=== PATIENT | male | born 1935 | race Caucasian/White ===

== ENCOUNTER 2021-11-29 10:52 | Inpatient (IN) | payer MEDICARE, OTHER ==
[~2021-11-29] VITALS: Ht 177.8 cm; Wt 99.8 kg
[2021-11-29 11:27] LABS: HEMATOCRIT 33.6 % (36.7-47.1); MEAN CORPUSCULAR HEMOGLOBIN 26.6 uug (23.8-33.4); MEAN CORPUSCULAR VOLUME 85.6 fL (73.0-96.2); PLATELET COUNT (AUTO) 161 K/uL (152-348)
[2021-11-29 11:32] LABS: CARBON DIOXIDE 29 mmol/L (21-32); CHLORIDE 106 mmol/L (98-107); CREATININE 1.3 mg/dL (0.6-1.3); GLUCOSE 109 mg/dL (74-106); POTASSIUM 3.9 mmol/L (3.5-5.1); UREA NITROGEN, BLOOD 25 mg/dL (7-18)
[2021-11-29 11:41] LABS: ALANINE AMINOTRANSFERASE 15 U/L (16-63); ALKALINE PHOSPHATASE 188 U/L (50-136); ASPARTATE AMINOTRANSFERASE 21 U/L (15-37); BILIRUBIN,DIRECT 0.9 mg/dL (0.0-0.2); BILIRUBIN,TOTAL 1.7 mg/dL (0.2-1.0); TOTAL PROTEIN, SERUM 7.7 g/dL (6.4-8.2)
[2021-11-29 11:49] LABS: THYROID STIMULATING HORMONE 2.513 mIU/mL (0.358-3.740)
[2021-11-29] MEDS ORDERED: DIGO250T PO (12:04)
[2021-11-29] MEDS ORDERED: CHOL10005 PO (12:04)
[2021-11-29] MEDS ORDERED: MELA3TAB41 PO (12:04)
[2021-11-29] MEDS ORDERED: TAMS-3 PO (12:04)
[2021-11-29] MEDS ORDERED: FLUT1BLS4 IH (12:04)
[2021-11-29] MEDS ORDERED: FURO-152 PO (12:04)
[2021-11-29] MEDS ORDERED: UBID100T7 PO (12:04)
[2021-11-29] MEDS ORDERED: [UNRECOGNIZED DRUG - REMARK] (12:04)
[2021-11-29] MEDS ORDERED: POLY17PO4 PO (12:04)
[2021-11-29] MEDS ORDERED: ACET-2154 PO (12:04)
[2021-11-29] MEDS ORDERED: EFFEXOR (12:04)
[2021-11-29] MEDS ORDERED: MIDO10TA PO (12:04)
[2021-11-29] MEDS ORDERED: PANT40TA49 PO (12:04)
[2021-11-29] MEDS ORDERED: LAMO100T2 PO (12:04)
[2021-11-29] MEDS ORDERED: MONT10TA22 PO (12:04)
--- NOTE | 2021-11-29 12:42 | NUR ---
PT IS IN ROOM 31B. DR BOLIVAR EVALUATED THE PT.
[2021-11-29 13:28] LABS: *BILIRUBIN,URIN NEGATIVE (NEGATIVE); *BLOOD, URINE NEGATIVE (NEGATIVE); *CLARITY,URINE CLEAR (CLEAR); *COLOR,URINE YELLOW (YELLOW); *KETONES,URINE NEGATIVE (NEGATIVE); LEUKOCYTE ESTERASE ,URINE NEGATIVE (NEGATIVE); NITRITE, URINE NEGATIVE (NEGATIVE); PH,URINE 5.5 (5.0-8.0); UGLUCOSE NEGATIVE (NEGATIVE)
[2021-11-29] MEDS ORDERED: FUROSEMIDE 20 MG/2 ML VIAL IV ONE (14:15)
[2021-11-29] MEDS ORDERED: FUROSEMIDE 20 MG/2 ML VIAL ONE (14:56)
--- NOTE | 2021-11-29 19:10 | NUR ---
OBTAINED BEDSIDE REPORT FROM OUTGOING RN, PATIENT LYING ON STRETCHER WITH FAMILY AT BEDSIDE. ADMITTED TO TELE, NO BEDS AVAIL, CALLED FOR HOSP BED, HEATED DINNER FOR PATIENT- LOW NA,LOW SOURAV DIET,PLACED ON MONITOR AND MATAINED SAFE ENVIRONMENT.
[2021-11-29] MEDS ORDERED: ACETAMINOPHEN 325 MG TABLET PO PRN (20:00)
[2021-11-29] MEDS ORDERED: MORPHINE SULFATE 2 MG/1 ML DISP.SYRIN IV PRN (20:00)
[2021-11-29] MEDS ORDERED: ONDANSETRON 4 MG/2 ML VIAL IV PRN (20:00)
[2021-11-29] MEDS ORDERED: ZOLPIDEM 5 MG TABLET PO PRN (20:00)
[2021-11-29] MEDS ORDERED: ENOXAPARIN SODIUM 40 MG/0.4 ML DISP.SYRIN SQ SCH (20:00)
[2021-11-29] MEDS ORDERED: ACETAMINOPHEN 325 MG TABLET ONE (20:46)
[2021-11-29] MEDS ORDERED: ENOXAPARIN SODIUM 100 MG/ML DISP.SYRIN SQ ONE (20:46)
[2021-11-29] MEDS ORDERED: TAMSULOSIN HCL 0.4 MG CAP.SR.24H ONE (20:46)
[2021-11-29] MEDS ORDERED: ENOXAPARIN SODIUM 40 MG/0.4 ML DISP.SYRIN SQ ONE (20:56)
[2021-11-29] MEDS ORDERED: MELATONIN 3 MG TABLET PO SCH (21:00)
[2021-11-29] MEDS ORDERED: DOCUSATE SODIUM 100 MG CAPSULE PO SCH (21:00)
[2021-11-29] MEDS ORDERED: TAMSULOSIN HCL 0.4 MG CAP.SR.24H PO SCH (21:00)
--- NOTE | 2021-11-30 | NUR ---
RESTING COMFORTABLY, VSS, NO DISTRESS NOTED, TOTAL UOP AT THIS TIME 700 ML CLEAR YELLOW URINE
--- NOTE | 2021-11-30 04:00 | NUR ---
VERBALILED ITCHING, NOTIFIED WILL GIVE REPORT FOR PCP TO EVALUATE ITCHINGTREATMENT
[2021-11-30] MEDS ORDERED: PANTOPRAZOLE SODIUM 40 MG TABLET.DR PO ONE (05:12)
--- NOTE | 2021-11-30 06:28 | NUR ---
PROTONIX DUPLICATED ON EMAR, ONLY 1 DOSE GIVEN BY ORTIZ BONILLA.
[2021-11-30] MEDS ORDERED: PANTOPRAZOLE SODIUM 40 MG TABLET.DR PO SCH ×2 (07:00)
--- NOTE | 2021-11-30 07:19 | NUR ---
REPORT GIVEN TO INCOMING RN ASSUMING CARE
--- NOTE | 2021-11-30 07:35 | NUR ---
Received pt. sitting in bed some restlessness and slightly agitated.HR of 69 sbp of 146/76 afebrile 97.5. rr 18 saturation of 96% on RA. No c/of pain IV line patent.
[2021-11-30 07:49] LABS: HEMATOCRIT 33.7 % (36.7-47.1); MEAN CORPUSCULAR HEMOGLOBIN 27.2 uug (23.8-33.4); MEAN CORPUSCULAR VOLUME 86.1 fL (73.0-96.2); PLATELET COUNT (AUTO) 171 K/uL (152-348)
[2021-11-30 08:22] LABS: THYROID STIMULATING HORMONE 2.881 mIU/mL (0.358-3.740)
[2021-11-30 08:42] LABS: BILIRUBIN,TOTAL 1.9 mg/dL (0.2-1.0); CREATININE 1.3 mg/dL (0.6-1.3); MAGNESIUM 1.8 mg/dL (1.8-2.4); PHOSPHOROUS 3.6 mg/dL (2.5-4.9); POTASSIUM 3.6 mmol/L (3.5-5.1); TOTAL PROTEIN, SERUM 7.9 g/dL (6.4-8.2)
--- NOTE | 2021-11-30 08:52 | NUR ---
Troponin of [address] Kasper.
[2021-11-30] MEDS ORDERED: FUROSEMIDE 20 MG/2 ML VIAL ONE (08:58)
[2021-11-30] MEDS ORDERED: MONTELUKAST SODIUM 10 MG TABLET ONE (08:59)
[2021-11-30] MEDS ORDERED: CHOLECALCIFEROL 1,000 UNIT TABLET ONE (08:59)
[2021-11-30] MEDS ORDERED: DIGOXIN 250 MCG TABLET ONE (08:59)
[2021-11-30] MEDS ORDERED: MONTELUKAST SODIUM 10 MG TABLET PO SCH (09:00)
[2021-11-30] MEDS ORDERED: FUROSEMIDE 20 MG/2 ML VIAL IV SCH (09:00)
[2021-11-30] MEDS ORDERED: LAMOTRIGINE 100 MG TABLET PO SCH (09:00)
[2021-11-30] MEDS ORDERED: CHOLECALCIFEROL 1,000 UNIT TABLET PO SCH (09:00)
[2021-11-30] MEDS ORDERED: DIGOXIN 250 MCG TABLET PO SCH (09:00)
[2021-11-30] MEDS ORDERED: VENL75CA62 PO (11:31)
--- NOTE | 2021-11-30 12:10 | NUR ---
HR of 62, [id number]/59 saturation of 99% on RA rr17
--- NOTE | 2021-11-30 12:10 | NUR ---
1100 cc juan carlos urine.
--- NOTE | 2021-11-30 13:06 | NUR ---
Patient sister-in law and as stated by her DPOA in the room to see pt. at this time she wanted to know if pt. was seen by MD this morning, and she was provided with information she stated not jovani "happy" she stated that pt's saturtion is been in the 70's since yesterday. She was informed that pt. is been stable throughout this morning, and a set of vitals taken with her at bedside, she was also educated on telemetry monitoring, with stable heart rate and stable sbp.
--- NOTE | 2021-11-30 13:15 | NUR ---
Patient seen by environmental planning engineer.
--- NOTE | 2021-11-30 13:55 | NUR ---
Patient seen by attending physician, Dr. Kasper.
[2021-11-30] MEDS ORDERED: TAMS-3 PO (13:58)
--- NOTE | 2021-11-30 14:15 | NUR ---
During visit pt. remained in the Emergency room documentation done as ER. pt.
--- NOTE | 2021-11-30 14:16 | NUR ---
Patient left room accompanied by daughter, and DPOA vitals stable no c/o pain. sbp 110/69 hr 69, saturation of 95% on RA.
--- NOTE | 2021-11-30 14:25 | NUR ---
Patient taken home by daughter and DPOA via wheelchair escorted to her car.
== END 2021-12-01 14:39 | DRG 291 ==
LOC: ER 10:54 → TRANSITION 18:44
PROVIDERS: ADMIT Internal Medicine; ATTEND Internal Medicine
DX: I50.21 Acute systolic (congestive) heart failure (principal); N17.0 Acute kidney failure with tubular necrosis; D68.59 Other primary thrombophilia; E44.0 Moderate protein-calorie malnutrition; I48.20 Chronic atrial fibrillation, unspecified; J90 Pleural effusion, not elsewhere classified; L97.319 Non-pressure chronic ulcer of right ankle with unspecified severity; I42.9 Cardiomyopathy, unspecified; D50.9 Iron deficiency anemia, unspecified; E88.09 Other disorders of plasma-protein metabolism, not elsewhere classified; E66.9 Obesity, unspecified; E86.0 Dehydration; F32.A Depression, unspecified; F03.90 Unspecified dementia, unspecified severity, without behavioral disturbance, psychotic disturbance, mood disturbance, and anxiety; J44.9 Chronic obstructive pulmonary disease, unspecified; R73.03 Prediabetes; Z20.822 Contact with and (suspected) exposure to COVID-19; Z91.81 History of falling; Z96.653 Presence of artificial knee joint, bilateral; R53.1 Weakness; Z95.810 Presence of automatic (implantable) cardiac defibrillator; K21.9 Gastro-esophageal reflux disease without esophagitis; N40.0 Benign prostatic hyperplasia without lower urinary tract symptoms; Z74.09 Other reduced mobility; M19.90 Unspecified osteoarthritis, unspecified site; I07.1 Rheumatic tricuspid insufficiency; Z68.31 Body mass index [BMI] 31.0-31.9, adult
CPT/HCPCS: 36415; 70450; 71045; 83550; 83605; 83735; 84100; 84443; 84484; 85025; 87040; 93005; 93307; A4663; G0378; J1650; J1940